=== PATIENT | female | born 1975 | race Hispanic/Latino ===

== ENCOUNTER 2017-03-25 01:18 | Emergency (ER) | payer SELFPAY ==
--- NOTE | 2017-03-25 10:37 | RAD ---
PORTABLE CHEST: HISTORY: Cough and shortness of breath. COMPARISON: 06/13/11 exam. FINDINGS: Heart size and mediastinum within normal limits. The lungs appear of infiltrates. IMPRESSION: No active intrathoracic disease. POS: [facility]
== END 2017-03-25 03:10 | disposition home or self-care (01) ==
LOC: ERS 01:18
DX: J20.9 Acute bronchitis, unspecified (principal); E11.9 Type 2 diabetes mellitus without complications; I10 Essential (primary) hypertension; Z79.4 Long term (current) use of insulin; Z79.899 Other long term (current) drug therapy
CPT/HCPCS: 71010; 87081; 87430; 99406

== ENCOUNTER 2017-10-31 13:03 | Outpatient (CLI) | payer MEDICAID | END 2017-10-31 13:04 | disposition home or self-care (01) | LOC: BICMAMMO 13:03 | PROVIDERS: ATTEND Nurse Practitioner Family | DX: Z12.31 Encounter for screening mammogram for malignant neoplasm of breast (principal); Z80.3 Family history of malignant neoplasm of breast | CPT/HCPCS: 77067 ==

== ENCOUNTER 2018-01-02 09:26 | Emergency (ER) | payer MEDICAID, SELFPAY ==
[2018-01-02] MEDS ORDERED: Labetalol HCl 100 MG/20 ML VIAL ONE (10:09)
--- NOTE | 2018-01-02 10:15 | RAD ---
PORTABLE CHEST 1 VIEW: DATE:01/02/18. TIME: 10:03 a.m. HISTORY: Chest pain, shortness of breath. FINDINGS: The heart size is normal. The lungs are expanded without focal areas of consolidation, pneumothorace s, or pleural effusions. IMPRESSION: No radiographic evidence of acute cardiopulmonary process. POS: [facility]
[2018-01-02 10:41] LABS: #Lymphocytes 1.8 thou/uL (1.20-3.40); #Monocytes 0.5 thou/uL (0.11-0.59); #Neutrophils 7.6 thou/uL (1.40-6.50); %Basophils 0.3 % (0.0-1.0); %Eosinophils 0.5 % (0.0-10.0); %Monocytes 5.3 % (0.0-10.0); Hemoglobin 12.5 g/dL (12.0-16.0); Mean Corpuscular HGB CONC 34.1 g/dL (32.0-36.0); Mean Corpuscular Hemoglobin 30.8 pg (27.0-31.0); Mean Corpuscular Volume 90.1 fL (78.0-98.0); Mean Platelet Volume 7.5 fL (7.4-10.4); Platelet Count 341 thou/uL (130-400); RBC Distribution Width 11.9 % (11.5-14.5); Red Blood Cell (RBC) Count 4.06 mill/uL (4.20-5.40)
--- NOTE | 2018-01-02 10:54 | CT ---
CT BRAIN WITHOUT CONTRAST: HISTORY: Right-sided weakness. COMPARISON: 08/16/2006 FINDINGS: No evidence of acute infarct, hemorrhage, midline shift, or abnormal extraaxial fluid collections is seen. The ventricular size is normal, and the basilar cisterns are patent. The bony calvarium is in tact. The visualized paranasal sinuses and mastoid air cells are well aerated. IMPRESSION: No CT evidence of acute intracranial process. POS: [facility]
[2018-01-02 11:08] LABS: CKMB 3.3 ng/mL (0-6.6); Troponin I Less than 0.010 ng/mL (< 0.028)
[2018-01-02 11:09] LABS: ALT (SGPT) 9 U/L (8-55); AST (SGOT) 11 U/L (5-34); Albumin 4.2 g/dL (3.5-5.0); Alkaline Phosphatase 43 U/L (40-150); Anion Gap 13 mmol/L (10-20); BUN (Urea Nitrogen) 12 mg/dL (7.0-18.7); Bilirubin, Total 0.4 mg/dL (0.2-1.2); CK (CPK) 165 U/L (29-168); Calc. Creatinine Clearance 0 mL/min (70-130); Carbon Dioxide 24 mmol/L (22-29); Chloride 104 mmol/L (98-107); Estimated GFR-MDRD Greater than 90; Globulin 3.1 g/dL (2.4-3.5); Glucose 100 mg/dL (70-105); Potassium 3.4 mmol/L (3.5-5.1); Protein, Total 7.3 g/dL (6.0-8.3); Sodium 138 mmol/L (136-145)
[2018-01-02 13:38] LABS: Troponin I Less than 0.010 ng/mL (< 0.028)
== END 2018-01-02 14:25 | disposition home or self-care (01) ==
LOC: ERS 09:26
DX: R07.89 Other chest pain (principal); R20.2 Paresthesia of skin; E11.9 Type 2 diabetes mellitus without complications; I10 Essential (primary) hypertension; Z79.899 Other long term (current) drug therapy; Z79.4 Long term (current) use of insulin
CPT/HCPCS: 36415; 70450; 71045; 80053; 82553; 83735; 84484; 85025; 93005; 96374

== ENCOUNTER 2018-11-07 06:45 | Emergency (ER) | payer SELFPAY ==
[2018-11-07 07:32] LABS: #Eosinphils 0.3 thou/uL (0.0-0.7); #Lymphocytes 2.1 thou/uL (1.20-3.40); #Monocytes 0.8 thou/uL (0.11-0.59); #Neutrophils 8.1 thou/uL (1.40-6.50); %Basophils 0.3 % (0.0-1.0); %Eosinophils 2.5 % (0.0-10.0); %Lymphocytes 18.6 % (21.0-51.0); %Monocytes 7.3 % (0.0-10.0); %Neutrophils 71.3 % (42.0-75.0); Hemoglobin 12.9 g/dL (12.0-16.0); Mean Corpuscular Hemoglobin 28.9 pg (27.0-31.0); Mean Corpuscular Volume 87.3 fL (78.0-98.0); Mean Platelet Volume 7.3 fL (7.4-10.4); Platelet Count 384 thou/uL (130-400); Red Blood Cell (RBC) Count 4.48 mill/uL (4.20-5.40); White Blood Cell (WBC) Count 11.3 thou/uL (4.8-10.8)
[2018-11-07 07:54] LABS: ALT (SGPT) 10 U/L (8-55); AST (SGOT) 10 U/L (5-34); Albumin 4.4 g/dL (3.5-5.0); Alkaline Phosphatase 74 U/L (40-150); Anion Gap 14 mmol/L (10-20); BUN (Urea Nitrogen) 18 mg/dL (7.0-18.7); Bilirubin, Total 0.6 mg/dL (0.2-1.2); CK (CPK) 92 U/L (29-168); Calc. Creatinine Clearance 0 mL/min (70-130); Calcium 9.9 mg/dL (7.8-10.44); Carbon Dioxide 26 mmol/L (22-29); Chloride 99 mmol/L (98-107); Estimated GFR-MDRD 61; Globulin 3.2 g/dL (2.4-3.5); Glucose 176 mg/dL (70-105); Lipase 24 U/L (8-78); Magnesium 1.5 mg/dL (1.6-2.6); Potassium 3.6 mmol/L (3.5-5.1); Protein, Total 7.6 g/dL (6.0-8.3); Sodium 135 mmol/L (136-145)
== END 2018-11-07 08:30 | disposition home or self-care (01) ==
LOC: ERS 06:45
DX: R11.2 Nausea with vomiting, unspecified (principal); R19.7 Diarrhea, unspecified
CPT/HCPCS: 80053; 82550; 83690; 83735; 85025; 96360

== ENCOUNTER 2019-06-09 22:14 | Emergency (ER) | payer SELFPAY ==
--- NOTE | 2019-06-09 23:15 | RAD ---
XR Chest Pa Lat STANDARD HISTORY: Cough, sneezing, headache COMPARISON: 01/02/2018 FINDINGS: The heart size is normal. The lungs are well expanded without focal areas of consolidation, pneumothorax or pleural effusions. IMPRESSION: No radiographic evidence of acute cardiopulmonary process.
== END 2019-06-09 23:25 | disposition home or self-care (01) ==
LOC: ERS 22:14
DX: J20.9 Acute bronchitis, unspecified (principal); E11.9 Type 2 diabetes mellitus without complications; I10 Essential (primary) hypertension
CPT/HCPCS: 71046

== ENCOUNTER 2019-06-14 20:55 | Emergency (ER) | payer SELFPAY ==
[2019-06-14 21:48] LABS: #Basophils 0.1 thou/uL (0.0-0.2); #Eosinphils 0.2 thou/uL (0.0-0.7); #Lymphocytes 4.4 thou/uL (1.20-3.40); #Monocytes 0.6 thou/uL (0.11-0.59); #Neutrophils 6.4 thou/uL (1.40-6.50); %Eosinophils 1.6 % (0.0-10.0); %Lymphocytes 37.4 % (21.0-51.0); %Monocytes 4.8 % (0.0-10.0); %Neutrophils 55.2 % (42.0-75.0); Hemoglobin 12.3 g/dL (12.0-16.0); Mean Corpuscular HGB CONC 32.9 g/dL (32.0-36.0); Mean Corpuscular Hemoglobin 26.9 pg (27.0-31.0); Mean Corpuscular Volume 81.9 fL (78.0-98.0); Mean Platelet Volume 7.3 fL (7.4-10.4); Platelet Count 560 thou/uL (130-400); RBC Distribution Width 12.5 % (11.5-14.5); Red Blood Cell (RBC) Count 4.56 mill/uL (4.20-5.40); White Blood Cell (WBC) Count 11.7 thou/uL (4.8-10.8)
--- NOTE | 2019-06-14 22:08 | RAD ---
Chest 2 views HISTORY: Cough. COMPARISON: 06/10/2019. FINDINGS: Cardiac silhouette and pulmonary vasculature are unremarkable. Mediastinum is midline. No c onfluent airspace consolidation, pneumothorax, or pleural fluid. IMPRESSION: No active cardiopulmonary abnormalities are demonstrated.
[2019-06-14 22:09] LABS: ALT (SGPT) 16 U/L (8-55); AST (SGOT) 14 U/L (5-34); Albumin 4.6 g/dL (3.5-5.0); Alkaline Phosphatase 75 U/L (40-110); Anion Gap 17 mmol/L (10-20); BUN (Urea Nitrogen) 23 mg/dL (7.0-18.7); Bilirubin, Total 0.3 mg/dL (0.2-1.2); Calc. Creatinine Clearance 0 mL/min (70-130); Calcium 9.5 mg/dL (7.8-10.44); Carbon Dioxide 27 mmol/L (22-29); Chloride 92 mmol/L (98-107); Estimated GFR-MDRD 58; Globulin 3.6 g/dL (2.4-3.5); Glucose 208 mg/dL (70-105); Potassium 3.8 mmol/L (3.5-5.1); Protein, Total 8.2 g/dL (6.0-8.3); Sodium 132 mmol/L (136-145)
== END 2019-06-14 23:15 | disposition home or self-care (01) ==
LOC: ERS 20:55
DX: R55 Syncope and collapse (principal); J20.9 Acute bronchitis, unspecified; E11.9 Type 2 diabetes mellitus without complications; I10 Essential (primary) hypertension; Z79.899 Other long term (current) drug therapy; Z79.4 Long term (current) use of insulin
CPT/HCPCS: 71046; 80053; 83880; 84484; 85025; 87804; 93005; 96360

== ENCOUNTER 2019-10-17 06:30 | Outpatient (CLI) | payer OTHER ==
[2019-10-17 18:08] LABS: Hemoglobin 10.5 g/dL (12.0-16.0); Mean Corpuscular HGB CONC 32.4 g/dL (32.0-36.0); Mean Corpuscular Hemoglobin 25.6 pg (27.0-31.0); Mean Corpuscular Volume 79.1 fL (78.0-98.0); Platelet Count 391 thou/uL (130-400); RBC Distribution Width 13.4 % (11.5-14.5); Red Blood Cell (RBC) Count 4.11 mill/uL (4.20-5.40); White Blood Cell (WBC) Count 8.2 thou/uL (4.8-10.8)
[2019-10-17 18:16] LABS: Anion Gap 15 mmol/L (10-20); BUN (Urea Nitrogen) 12 mg/dL (7.0-18.7); Calc. Creatinine Clearance 0 mL/min (70-130); Calcium 9.3 mg/dL (7.8-10.44); Carbon Dioxide 25 mmol/L (22-29); Chloride 99 mmol/L (98-107); Estimated GFR-MDRD 75; Glucose 287 mg/dL (70-105); Sodium 135 mmol/L (136-145)
[2019-10-17 18:17] LABS: BHCG - Serum Negative (NEGATIVE); Pregs Control Background? CLEAR/WHITE (CLR/WHITE); Pregs Control Bar Appear? YES (CONTROL BAR)
[2019-10-20 12:09] LABS: SARS-CoV-2 MS2 Positive; SARS-CoV-2 N Gene Negative; SARS-CoV-2 S Gene Negative; SARS-CoV-2 orf1ab Negative
== END 2019-10-17 06:31 | disposition home or self-care (01) ==
LOC: LABBT 06:30
PROVIDERS: ATTEND Student in an Organized Health Care Education/Training Program
DX: Z01.812 Encounter for preprocedural laboratory examination (principal); Z11.59 Encounter for screening for other viral diseases; Z83.71 Family history of colonic polyps
CPT/HCPCS: 80048; 84703; 85027; 86850; 86900; 86901; 87635; U0003

== ENCOUNTER 2019-10-21 11:55 | Inpatient (IN) | payer OTHER ==
[2019-10-16 09:32] VITALS: BMI 25.0
[2019-10-21] MEDS ORDERED: Levofloxacin 500 mg/D5W 100 ml Premix Bag ONE (12:40)
[2019-10-21] MEDS ORDERED: Famotidine/PF 20 mg/2ml Vial ONE (12:40)
[2019-10-21] MEDS ORDERED: Gabapentin 300 MG CAP ONE (12:40)
[2019-10-21] MEDS ORDERED: CeleCOXIB 100 MG CAP ONE (12:40)
[2019-10-21] MEDS ORDERED: Clindamycin/D5W 900 mg/50 ml Premix Bag ONE (12:40)
[2019-10-21] MEDS ORDERED: Fentanyl 100 MCG/2 ML VIAL ONE (12:49)
[2019-10-21] MEDS ORDERED: Insulin Regular 300 UNITS/3 ML VIAL ONE (12:55)
[2019-10-21] MEDS ORDERED: Lidocaine 1% w/Epinephrine 1:100K 20 ML VIAL ONE (13:57)
[2019-10-21] MEDS ORDERED: Bupivacaine PF 0.5% 30 ML VIAL ONE (13:57)
[2019-10-21] MEDS ORDERED: Glycopyrrolate 0.2 MG/ML 5 ML SYRINGE ONE (15:04)
[2019-10-21] MEDS ORDERED: PHENYLEPHRINE-NS 100 MCG/ML 10 ML SYRINGE ONE (15:04)
[2019-10-21] MEDS ORDERED: Ondansetron PF 4 MG/2 ML Vial ONE (15:04)
[2019-10-21] MEDS ORDERED: Rocuronium Bromide 10 MG/ML (10ML VIAL) ONE (15:04)
[2019-10-21] MEDS ORDERED: diphenhydrAMINE 50 MG/ML VIAL ONE (15:04)
[2019-10-21] MEDS ORDERED: PROPOFOL 200 MG/20 ML VIAL ONE (15:04)
[2019-10-21] MEDS ORDERED: Lidocaine 1% PF 5 ML VIAL ONE (15:04)
[2019-10-21] MEDS ORDERED: Meperidine HCl/PF 25 MG/ML VIAL SLOW IVP PRN (15:10)
[2019-10-21] MEDS ORDERED: Promethazine HCl 25 MG/ML VIAL SLOW IVP PRN (15:10)
[2019-10-21] MEDS ORDERED: HYDROmorphone 2 MG/ML VIAL SLOW IVP PRN (15:10)
[2019-10-21] MEDS ORDERED: HYDROcodone/Acetaminophen 5/325 mg Tablet PO PRN ×2 (15:12)
[2019-10-21] MEDS ORDERED: Promethazine HCl 25 MG/ML VIAL IM PRN (15:12)
[2019-10-21] MEDS ORDERED: Zolpidem Tartrate 5 MG TAB PO PRN (15:12)
[2019-10-21] MEDS ORDERED: Ondansetron PF 4 MG/2 ML Vial IVP PRN (15:12)
[2019-10-21] MEDS ORDERED: Dextrose 5% in Water 1,000 ML IV PRN (15:12)
[2019-10-21] MEDS ORDERED: Dextrose 50% Abboject 50 ML SYRINGE SLOW IVP PRN (15:12)
[2019-10-21] MEDS ORDERED: Simethicone Chewable 80 MG TAB PO PRN (15:12)
[2019-10-21] MEDS ORDERED: diphenhydrAMINE 25 MG CAP PO PRN (15:12)
[2019-10-21] MEDS ORDERED: Ketorolac Tromethamine 30 MG/ML VIAL IVP SCH (18:00)
--- NOTE | 2019-10-21 20:39 | OP ---
DATE OF PROCEDURE: 10/21/2019 PREOPERATIVE DIAGNOSES: 1. Menorrhagia. 2. Uterine fibroids. 3. Left lower quadrant pain. POSTOPERATIVE DIAGNOSES: 1. Menorrhagia. 2. Uterine fibroids. 3. Left lower quadrant pain. PROCEDURES PERFORMED: Robotic-assisted total laparoscopic hysterectomy, left salpingo-oophorectomy, and right salpingectomy. ANESTHESIA: General endotracheal. GUEST SERVICES ASSOCIATE SURGEON: Basia Shields. ESTIMATED BLOOD LOSS: 20 mL. IV FLUIDS: 1200 mL of crystalloid. URINE OUTPUT: 60 mL, slightly concentrated urine. COMPLICATIONS: None. DRAINS: Mahoney catheter. PATHOLOGY: Uterus, cervix, bilateral fallopian tubes, left ovary. FINDINGS: Normal-appearing 12-week size uterus. Normal-appearing cervix. Normal-appearing bilateral fallopian tubes and ovaries. The ureters were intact in the pelvic sidewall and visible throughout the case. There was excellent hemostasis on low pressure check. DESCRIPTION OF PROCEDURE: The patient was taken to the operating room, where general anesthesia was obtained without difficulty. The patient was prepped and draped in a sterile fashion in the dorsal lithotomy position. Catheter was placed in the bladder. A speculum was placed in the vagina. The anterior lip of the cervix grasped with a single-tooth tenaculum. The cervix was then progressively dilated with Francois dilators. The uterus sounded to 11 cm. The SHAHRAM manipulator was assembled with a 10 cm tip and a 4 cm colpotomizer ring. The SHAHRAM was inserted into the uterus and the speculum and tenaculum were removed out of the vagina. Legs were placed in low lithotomy. Attention was turned to the abdomen. A mixture of 1% lidocaine with epinephrine and 0.5% Marcaine plain were infiltrated into the umbilicus. A 12 mm skin incision was made. The Veress needle was passed into the abdomen noting an opening pressure of 0 mmHg. Pneumoperitoneum was obtained without difficulty. The Veress needle was removed. The 12 mm trocar was advanced into the abdomen and her placement with robotic camera. Steep Trendelenburg was obtained. Right and left lower quadrant 8 mm robotic trocars were placed under direct visualization after infiltrating with anesthetic. A right upper quadrant 11 mm port was also placed under direct visualization after infiltrating with anesthetic. The robot was then docked. The right robotic arm contained monopolar scissors. Left robotic arm contained a fenestrated bipolar. Surgeon console took control. The right fallopian tube was grasped and elevated. The mesosalpinx was clamped from lateral to medial with the fenestrated, cauterized and then incised with the scissors. The medial portion was met and the fallopian tube was clamped across the fenestrated, cauterized and transected with the scissors and removed out of the abdomen. The utero-ovarian was cauterized with the fenestrated and incised and the incision was taken down to the round ligament where the midportion of the round ligament was cauterized with the fenestrated and incised with the scissors. The anterior and posterior leaf of the broad ligament were then incised and the retroperitoneum was dissected off the uterine vessels into the pelvic sidewall. The ureter was visible very posterior and caudad in this case and was well away from the internal cervical os where incisions would be made. Once the vessels were active adequately skeletonized, they were cauterized several times. The vesicouterine peritoneum was then incised and the bladder flap was created with a scoring technique on the pubocervical fascia and blunt dissection with the back end of the scissors distally down below the colpotomizer ring level. Attention was turned to the left side. Since the patient had complained of chronic left lower quadrant pain, she desired her left ovary removed. There were some physiologic adhesions of the sigmoid and rectosigmoid to the pelvic sidewall. The IP ligament was grasped. The ureter was noted running medially across the pelvic brim. The IP was cauterized multiple times with the fenestrated and incised. The round ligament was also cauterized in the midportion and incised and the posterior leaf of the broad ligament was incised down to the level of the uterosacral ligament. The ureter was identified running in the retroperitoneum where it crossed underneath the uterine vessel and this was very lateral from the area of operation. The anterior leaf of the broad ligament was incised and the uterine vessels on the left side were skeletonized and cautery was performed of this vessels. Incision was then made anteriorly on the colpotomy with the scissors. This was carried around laterally. The uterine vessels were incised and hemostasis was noted. The posterior colpotomy was performed and the uterus was then removed out of the body through the vagina and left in the vagina as a means to maintain pneumoperitoneum. The vaginal cuff was irrigated. The scissors were traded out for the needle diesel pile driver operator. Hemostasis was noted. The vaginal cuff was repaired with a 2-0 PDS barbed suture with excellent reapproximation incorporating the vaginal mucosa and posterior peritoneum in each bite. This was then run back for a second layer and the needle was cut and removed out of the abdomen. Irrigation was then performed of all the pedicles and the pelvis and then suctioned. A low-pressure check was performed and excellent hemostasis was noted. All instruments were then removed out of the abdomen. The robot was undocked and pneumoperitoneum was released. The fascia of the umbilical port was closed with a 0 Vicryl in a [id number] fashion. The skin was closed with 4-0 Monocryl in a subcuticular fashion and Dermabond was applied as well as a pressure dressing. The patient tolerated the procedure well. Sponge, lap, and needle counts correct x2. The patient was taken to recovery room in stable condition. The patient received clindamycin 900 mg and Levaquin 500 mg prior to the procedure. Job ID: [id number]
[2019-10-21] MEDS: Docusate 100 MG CAP PO SCH (23:05)
[2019-10-21] MEDS: metFORMIN 500 MG TAB PO SCH (23:05)
[2019-10-21] MEDS: glipiZIDE 10 MG TAB PO SCH (23:05)
[2019-10-21] MEDS: HumaLOG 300 UNITS/3 ML VIAL SC PRN (23:17)
[2019-10-21] MEDS: Sodium Chloride 0.9% 1,000 ML IV SCH (23:19)
[2019-10-22 05:43] LABS: Hemoglobin 10.7 g/dL (12.0-16.0); Mean Corpuscular HGB CONC 32.8 g/dL (32.0-36.0); Mean Corpuscular Hemoglobin 25.8 pg (27.0-31.0); Mean Corpuscular Volume 78.5 fL (78.0-98.0); Mean Platelet Volume 8.2 fL (7.4-10.4); Platelet Count 360 thou/uL (130-400); RBC Distribution Width 13.6 % (11.5-14.5); Red Blood Cell (RBC) Count 4.15 mill/uL (4.20-5.40); White Blood Cell (WBC) Count 16.9 thou/uL (4.8-10.8)
[2019-10-22] MEDS ORDERED: Ibuprofen 800 MG TAB PO SCH (06:00)
[2019-10-22] MEDS: HumaLOG 300 UNITS/3 ML VIAL SC PRN ×2 (08:30→11:28)
[2019-10-22] MEDS ORDERED: Alogliptin 25 MG TAB PO SCH (09:00)
[2019-10-22] MEDS ORDERED: Insulin Glargine 45 UNITS in Pre-Filled Syringe 1 EACH SC SCH (09:00)
[2019-10-22] MEDS ORDERED: Lisinopril/Hydrochlorothiazide 10 mg/12.5 mg Tablet PO SCH (09:00)
[2019-10-22] MEDS ORDERED: INSULIN DETEMIR 45 UNIT SC SCH (09:00)
[2019-10-22] MEDS: Sodium Chloride 0.9% 1,000 ML IV SCH (09:15)
[2019-10-22] MEDS: Docusate 100 MG CAP PO SCH (09:40)
[2019-10-22] MEDS: metFORMIN 500 MG TAB PO SCH (09:40)
[2019-10-22] MEDS ORDERED: Lisinopril 10 MG TAB PO SCH (09:45)
[2019-10-22] MEDS ORDERED: Hydrochlorothiazide 25 MG TAB PO SCH (09:45)
--- NOTE | 2019-10-22 09:47 | PDOC.EVN ---
Event Note - Event Note Event Note: POD1 S: Having gas pain that is manageable, roland reg diet, DTV. O: VSSAF NAD unlabored respirations abd soft/appttp/ND/inc c/d/i No edema Hgb 10.7 FSBS 210 A) POD1 s/p RATLH LSO P) Doing well, needs to void otherwise met milestones BS elevated due to perioperative insulin mgmt and surgery getting pushed back 24hr, cont home meds Hgb increased from preop, has iron deficiency anemia due to chronic blood loss. Will start Iron after recovery Path pending DC home FU 2 weeks
[2019-10-22] MEDS: glipiZIDE 10 MG TAB PO SCH (10:27)
[2019-10-22 14:23] VITALS: BP 143/70; TEMP 98.7
[2019-10-23] MEDS ORDERED: Lisinopril 10 MG TAB PO SCH (09:00)
[2019-10-23] MEDS ORDERED: Hydrochlorothiazide 25 MG TAB PO SCH (09:00)
== END 2019-10-22 14:20 | disposition home or self-care (01) | DRG 743 ==
LOC: SDC 11:55 → 3SW 15:11
PROVIDERS: ADMIT Student in an Organized Health Care Education/Training Program; ATTEND Student in an Organized Health Care Education/Training Program
PROC: 0UT94ZZ Resection of Uterus, Percutaneous Endoscopic Approach (ICD-10-PCS; principal; 2019-10-21)
PROC: 0UT74ZZ Resection of Bilateral Fallopian Tubes, Percutaneous Endoscopic Approach (ICD-10-PCS; 2019-10-21)
PROC: 0UT14ZZ Resection of Left Ovary, Percutaneous Endoscopic Approach (ICD-10-PCS; 2019-10-21)
PROC: 8E0W4CZ Robotic Assisted Procedure of Trunk Region, Percutaneous Endoscopic Approach (ICD-10-PCS; 2019-10-21)
DX: D25.2 Subserosal leiomyoma of uterus (principal); N92.0 Excessive and frequent menstruation with regular cycle; D50.0 Iron deficiency anemia secondary to blood loss (chronic)
CPT/HCPCS: 36415; 36416; 85027; 88307; J1200; J1815; J1885; J1956; J2001; J2405; J2704; J3010; J3490; S0020; S0028

== ENCOUNTER 2020-01-29 09:45 | Observation (INO) | payer OTHER, SELFPAY ==
[2020-01-29 10:55] LABS: #Basophils 0.1 thou/uL (0.0-0.2); #Lymphocytes 1.9 thou/uL (1.20-3.40); #Monocytes 0.6 thou/uL (0.11-0.59); #Neutrophils 2.8 thou/uL (1.40-6.50); %Basophils 1.4 % (0.0-1.0); %Eosinophils 0.7 % (0.0-10.0); %Lymphocytes 35.3 % (21.0-51.0); %Monocytes 11.1 % (0.0-10.0); %Neutrophils 51.5 % (42.0-75.0); Hemoglobin 13.6 g/dL (12.0-16.0); Mean Corpuscular HGB CONC 33.2 g/dL (32.0-36.0); Mean Corpuscular Hemoglobin 27.1 pg (27.0-31.0); Mean Corpuscular Volume 81.8 fL (78.0-98.0); Mean Platelet Volume 8.9 fL (7.4-10.4); Platelet Count 351 thou/uL (130-400); RBC Distribution Width 16.4 % (11.5-14.5); Red Blood Cell (RBC) Count 5.01 mill/uL (4.20-5.40); White Blood Cell (WBC) Count 5.4 thou/uL (4.8-10.8)
[2020-01-29 11:19] LABS: ALT (SGPT) 25 U/L (8-55); AST (SGOT) 23 U/L (5-34); Albumin 4.1 g/dL (3.5-5.0); Alkaline Phosphatase 73 U/L (40-110); Anion Gap 15 mmol/L (10-20); BUN (Urea Nitrogen) 12 mg/dL (7.0-18.7); Bilirubin, Total 0.2 mg/dL (0.2-1.2); Calc. Creatinine Clearance 0 mL/min (70-130); Calcium 8.7 mg/dL (7.8-10.44); Carbon Dioxide 25 mmol/L (22-29); Chloride 98 mmol/L (98-107); Estimated GFR-MDRD 66; Globulin 3.5 g/dL (2.4-3.5); Glucose 321 mg/dL (70-105); Potassium 3.8 mmol/L (3.5-5.1); Protein, Total 7.6 g/dL (6.0-8.3); Sodium 134 mmol/L (136-145)
--- NOTE | 2020-01-29 11:25 | CT ---
CT HEAD WITHOUT CONTRAST: Date: 01/29/2020 INDICATION: Right side weakness. COMPARISON: 01/02/2018. FINDINGS: Ventricles have normal size and position. There is no evidence of intracranial mass or hemorrhage. No edema or infarct seen. Paranasal sinuses are clear. IMPRESSION: No acute abnormality. POS: [facility]
[2020-01-29] MEDS ORDERED: Aspirin Chewable 81 MG TAB ONE (13:07)
--- NOTE | 2020-01-29 13:33 | PDOC.HHP ---
Hospitalist HPI - History of Present Illness Right arm paresthesia History of Present Illness: PCP: Rachel Lorenzo The patient is a 44-year-old female with a past medical history significant for DM 2 (on Levemir) and hypertension that presents to the emergency department for the above complaint. Patient reports at approximately 3:00, yesterday afternoon, developing right upper extremity paresthesias. She says it is like when you fall asleep on your arm. She denies any recent trauma, focal motor wea kness, headache, change in speech or vision. She also reports that her daughter tested positive for COVID 2 days ago. She reports associated mild sore throat, body aches, cough and chills. She denies feeling shortness of breath or wheezing. Has no history of COPD/asthma. She denies any loss of smell, abdominal pain, vomiting or diarrhea. She has no urinary symptoms. ED Course: VITAL SIGNS [facility] Jan 29, 2020 09:57 JEFFERY Guevara Rebecca Pulse: 124, Resp: 14, Temp: 98.4 (Oral), Pain: 5, O2 sat: 98, Time: 01/29/2020 09:57. VITAL SIGNS [facility] Jan 29, 2020 10:02 JEFFERY Guevara Rebecca BP: 163/105, Pulse: 116, Time: 01/29/2020 10:02. VITAL SIGNS [facility] Jan 29, 2020 12:02 JEFFERY Guevara Rebecca BP: 129/86, Pulse: 103, Resp: 16, Pain: 5, O2 sat: 98 on (Room Air), Time: 01/29/2020 12:02. VITAL SIGNS [facility] Jan 29, 2020 11:00 JEFFERY Guevara Rebecca BP: 140/83, Pulse: 109, Resp: 16, Pain: 5, O2 sat: 99 on (Room Air), Time: 01/29/2020 11:00. Medication administration: aspirin oral 324 mg Oral Given 13:11 01/29/2020 Hospitalist ROS - Review of Systems All other systems reviewed; all pertinent +/- noted in HPI/Subj - Medication Medications: Levemir U-100 Insulin solution : Strength - 100 unit/mL : SUBCUTANEOUS Patient Dose: Unknown.25 IN AM, 20 PM. metFORMIN tablet extended release 24hr : Strength - 1,000 mg : ORAL Patient Dose: 1 tab(s) 2 times a day. glipiZIDE tablet : Strength - 10 mg : ORAL Patient Dose: 2 times a day. Januvia tablet : Strength - 25 mg : ORAL Patient Dose: Unknown dosing. lisinopril-hydrochlorothiazide tablet : Strength - 10 mg-12.5 mg : ORAL Patient Dose: 1 tab(s) once a day (in the morning). Allergies: atorvastatin (Unconfirmed), Latex, Natural Rubber, latex (Unconfirmed), Lipitor, Penicillins Hospitalist History - Past Medical History Source: patient, RN notes reviewed Cardiac: reports: HTN Endocrine: reports: Diabetes (Type II, on insulin) - Past Surgical History Past Surgical History: reports: Tubal Ligation, Other (Uterine tumor 07/10) - Family History Family History: denies: cerebrovascular accident - Social History Smoking Status: Never smoker Alcohol: reports: Rare Drugs: reports: none Living Situation: With Family Occupation: Works for [employer] Activity level: independent ambulation - Exam General Appearance: NAD, awake alert Eye: PERRL, anicteric sclera ENT: normocephalic atraumatic Neck: supple, symmetric, no JVD Heart: RRR, no murmur, no gallops, no rubs, normal peripheral pulses Respiratory: CTAB, no wheezes, no rales, no ronchi, normal chest expansion, no tachypnea Gastrointestinal: soft, non-tender, normal bowel sounds, no guarding, no rigidity Extremities: no cyanosis, no edema Skin: no rashes Neurological: cranial nerve grossly intact, no weakness. negative: facial droop, speech deficit, vision deficit Neurological - other findings: Right upper extremity decreased sensation Musculoskeletal: normal tone, normal strength Psychiatric: normal affect, A&O x 3 Hospitalist Results - Labs Result Diagrams: 01/29/20 10:01/29/20 10:01 Lab results: WBC 5.4 thou/uL (4.8-10.8) 01/29/20 10:01 Hgb 13.6 g/dL (12.0-16.0) 01/29/20 10:01 Hct 41.0 % (36.0-47.0) 01/29/20 10:01 MCV 81.8 fL (78.0-98.0) 01/29/20 10:01 Plt Count 351 thou/uL (130-400) 01/29/20 10:01 Neutrophils % 51.5 % (42.0-75.0) 01/29/20 10:01 Sodium 134 mmol/L (136-145) L 01/29/20 10:01 Potassium 3.8 mmol/L (3.5-5.1) 01/29/20 10:01 Chloride 98 mmol/L (98-107) 01/29/20 10:01 Carbon Dioxide 25 mmol/L (22-29) 01/29/20 10:01 BUN 12 mg/dL (7.0-18.7) 01/29/20 10:01 Creatinine 0.92 mg/dL (0.6-1.1) 01/29/20 10:01 Glucose 321 mg/dL (70-105) H 01/29/20 10:01 Calcium 8.7 mg/dL (7.8-10.44) 01/29/20 10:01 Total Bilirubin 0.2 mg/dL (0.2-1.2) 01/29/20 10:01 AST 23 U/L (5-34) 01/29/20 10:01 ALT 25 U/L (8-55) 01/29/20 10:01 Alkaline Phosphatase 73 U/L (40-110) 01/29/20 10:01 Troponin I Less than 0.010 ng/mL (< 0.028) 01/29/20 10:01 Serum Total Protein 7.6 g/dL (6.0-8.3) 01/29/20 10:01 Albumin 4.1 g/dL (3.5-5.0) 01/29/20 10:01 - EKG Interpretation EK lead EKG interpreted by Emergency Department Physician at time of study, Sinus tachycardia heart rate 114 bpm normal axis no ectopy no ST elevation or depression overall impression is nonspecific. - Radiology Interpretation CT scan - head Status: report reviewed by me Additional Comment: no acute intracranial process. Hospitalist H&P A/P - Problem (1) Paresthesia of right upper extremity Code(s): R20.2 - PARESTHESIA OF SKIN Status: Acute (2) Exposure to COVID-19 virus Code(s): Z20.828 - CONTACT W AND EXPOSURE TO OTH VIRAL COMMUNICABLE DISEASES Status: Acute (3) Diabetes type 2, uncontrolled Code(s): E11.65 - TYPE 2 DIABETES MELLITUS WITH HYPERGLYCEMIA Status: Chronic (4) Hypertension Code(s): I10 - ESSENTIAL (PRIMARY) HYPERTENSION Status: Chronic - Plan Plan: 44/F with PMH of HTN, DM 2, and COVID exposure presents to emergency department for right upper extremity paresthesias. Admit to stroke unit, observation status. Expected length of stay less than 2 midnights. Presented elevated BP and HR, NL RR, SPO2, afebrile. NIH 1, RUE sensation CT brain negative for acute process EKG sinus tach, 114 Troponin negative WBC 5.4, BG 321 #Paresthesias of right upper extremity Obtain MRI, echo, CD US Consult neurology and PT Continue aspirin Documented allergy to statin, no statins Check TSH, FLP, UA, mag, folate/B12. Neuro checks. Permissive hypertension #Exposure COVID 19 virus Daughter tested +2 days ago. Rapid COVID swab pending. Isolation precautions. Will get CXR. #DM2 Takes Levemir 25 units a.m./20 units p.m. Takes metformin, glipizide, unknown dose Januvia at home. We will hold oral anti-hyperglycemics for now. We will start Levemir home dose. We will give 10 units regular insulin SC x1. Moderate ISS. AC/at bedtime checks. Hypertension Presented hypertensive. Takes lisinopril/HCTZ at home. Did not take home dose this morning. We will give home dose x1 now and restart home medication. Continue to monitor BP. SCDs for DVT prophylaxis. No GI prophylaxis. Full code. Discussed the case with Dr. Herrera.
[2020-01-29] MEDS ORDERED: hydrALAZINE 20 MG/ML VIAL SLOW IVP PRN (14:12)
[2020-01-29] MEDS ORDERED: Labetalol HCl 100 MG/20 ML VIAL SLOW IVP PRN (14:12)
[2020-01-29] MEDS ORDERED: Ondansetron ODT 4 MG TAB PO PRN (14:16)
[2020-01-29] MEDS ORDERED: Ondansetron PF 4 MG/2 ML Vial IVP PRN (14:16)
[2020-01-29] MEDS ORDERED: Acetaminophen 325 MG TAB PO PRN (14:16)
[2020-01-29] MEDS ORDERED: Dextrose 5% in Water 1,000 ML IV PRN (14:32)
[2020-01-29] MEDS ORDERED: HumaLOG 300 UNITS/3 ML VIAL SC PRN ×2 (14:32)
[2020-01-29] MEDS ORDERED: Dextrose 50% Abboject 50 ML SYRINGE SLOW IVP PRN (14:32)
[2020-01-29] MEDS ORDERED: Insulin Regular 300 UNITS/3 ML VIAL SC SCH (14:45)
--- NOTE | 2020-01-29 14:55 | RAD ---
PORTABLE CHEST: 01/29/20 HISTORY: Cough and chills. COVID exposure. Lungs appear clear. No infiltrate identified. Heart and mediastinum unremarkable. IMPRESSION: No evidence of infiltrate. POS: [facility]
[2020-01-29] MEDS ORDERED: Lisinopril/Hydrochlorothiazide 10 mg/12.5 mg Tablet PO SCH (15:00)
[2020-01-29] MEDS ORDERED: Magnesium 2 GM/50 ML 2 GM in Premix Bag 1 BAG IVPB SCH (15:30)
--- NOTE | 2020-01-29 16:10 | MRI ---
MRI OF THE BRAIN WITHOUT CONTRAST: 01/29/20 HISTORY: Right sided weakness. FINDINGS: Correlation is made with the CT scan obtained earlier today. No restricted diffusion is seen. No signal abnormalities are seen on the highly sensitive FLAIR image s. The ventricular size is normal and the basilar cisterns patent. No evidence of infarct, hemorrhage, midline shift or abnormal extra-axial fluid collections are seen. No tonsillar herniation is noted. There is mild mucosal disease in the paranasal sinuses. IMPRESSION: No evidence of acute intracranial process. POS: [facility]
[2020-01-29 17:05] LABS: Bilirubin Negative (Negative); Blood, Urine Negative (Negative); Clarity Clear (Clear); Glucose, Urine (Dipstick) Greater than 1000 mg/dL (Negative); Ketone, Urine Negative (Negative); Leukocyte 500 Leu/uL (Negative); Nitrite Negative (Negative); Protein, Urine (Dipstick) Negative (Neg-Trace); RBC/HPF 0-3 HPF (0-3); Specific Gravity, Urine 1.022 (1.002-1.036); Urobilinogen Normal mg/dL (Less than 2)
[2020-01-29 17:06] LABS: Bacteria/HPF 1+ HPF (None Seen)
[2020-01-29 17:30] LABS: SARS-CoV-2 MS2 Negative; SARS-CoV-2 N Gene Positive; SARS-CoV-2 S Gene Positive; SARS-CoV-2 by NAA DETECTED (NotDetected); SARS-CoV-2 orf1ab Positive
[2020-01-29] MEDS ORDERED: Insulin Glargine 20 UNITS in Pre-Filled Syringe SC SCH (21:00)
[2020-01-30 02:03] VITALS: BMI 25.6
[2020-01-30 05:17] LABS: #Basophils 0.1 thou/uL (0.0-0.2); #Lymphocytes 1.9 thou/uL (1.20-3.40); #Monocytes 0.4 thou/uL (0.11-0.59); #Neutrophils 2.1 thou/uL (1.40-6.50); %Basophils 1.6 % (0.0-1.0); %Eosinophils 0.7 % (0.0-10.0); %Lymphocytes 42.2 % (21.0-51.0); %Monocytes 8.3 % (0.0-10.0); %Neutrophils 47.2 % (42.0-75.0); Hemoglobin 13.2 g/dL (12.0-16.0); Mean Corpuscular HGB CONC 33.5 g/dL (32.0-36.0); Mean Corpuscular Hemoglobin 27.4 pg (27.0-31.0); Mean Corpuscular Volume 81.8 fL (78.0-98.0); Mean Platelet Volume 7.9 fL (7.4-10.4); Platelet Count 313 thou/uL (130-400); RBC Distribution Width 16.1 % (11.5-14.5); White Blood Cell (WBC) Count 4.5 thou/uL (4.8-10.8)
[2020-01-30 05:34] LABS: Anion Gap 9 mmol/L (10-20); BUN (Urea Nitrogen) 14 mg/dL (7.0-18.7); Calc. Creatinine Clearance 102 mL/min (70-130); Calcium 8.4 mg/dL (7.8-10.44); Carbon Dioxide 27 mmol/L (22-29); Cardiac Risk 5.9 (Less than 4.5); Chloride 100 mmol/L (98-107); Cholesterol 129 mg/dl (< 200 Desired); Estimated GFR-MDRD 80; Glucose 310 mg/dL (70-105); HDL Cholesterol 22 mg/dL (>60 Neg Risk); LDL Cholesterol, Calculated 69 mg/dL; Potassium 3.8 mmol/L (3.5-5.1); Sodium 132 mmol/L (136-145); Triglycerides 190 mg/dL (Less than 150)
[2020-01-30 05:56] LABS: Ferritin 12.25 ng/mL (10-291)
--- NOTE | 2020-01-30 08:37 | ULT ---
BILATERALL CAROTID DUPLEX ULTRASOUND: HISTORY: Right-sided weakness. FINDINGS: Real-time color Doppler evaluation of the right and left carotid systems was performed. This shows s ome intimal thickening and minimal plaque formation bilaterally. On the right side, peak systolic velocities of the common carotid were 87 cm/s. Internal carotid batsheva ocities 95 cm/s. External carotid velocities are 103 cm/s. On the left side, peak systolic velocities of the common carotid were 89 cm/s. Internal carotid velo cities are 82 cm/s. External carotid velocities are 88 cm/s. Vertebral flow is antegrade bilaterally. IMPRESSION: No evidence of hemodynamically significant stenosis of either internal carotid artery by NASCET crite russel. POS: [facility]
[2020-01-30] MEDS ORDERED: Lisinopril/Hydrochlorothiazide 10 mg/12.5 mg Tablet PO SCH (09:00)
[2020-01-30] MEDS ORDERED: Zinc Sulfate 220 MG CAP PO SCH (09:00)
[2020-01-30] MEDS ORDERED: Insulin Glargine 25 UNITS in Pre-Filled Syringe SC SCH (09:00)
[2020-01-30] MEDS ORDERED: Ascorbic Acid 500 mg Chewable Tablet PO SCH (09:00)
[2020-01-30] MEDS ORDERED: Aspirin 81 mg Enteric Coated Tablet PO SCH (09:00)
[2020-01-30] MEDS ORDERED: Cholecalciferol 1,000 UNITS (25 MCG) TAB PO SCH (09:00)
[2020-01-30] MEDS ORDERED: FLU VACC QS2020-21(6MOS UP)/PF 60 MCG/0.5 ML SYRINGE IM ONE (09:00)
[2020-01-30] MEDS ORDERED: Dexamethasone 10 MG in Sodium Chloride 0.9% 50 ML IVPB SCH (09:30)
[2020-01-30] MEDS ORDERED: Dexamethasone 4 mg/ml Vial SLOW IVP SCH (11:00)
[2020-01-30 11:51] VITALS: BP 134/81; TEMP 97.9
[2020-01-30 13:58] LABS: INR-International Normal Ratio 0.9; PTT 26.5 sec (22.9-36.1); Prothrombin Time 12.2 sec (12.0-14.7)
[2020-01-30 13:59] LABS: D-Dimer Test 0.51 *mcg/mL (0.27-0.43)
[2020-01-30 16:55] LABS: Cardiolipin IgA Ab 3.4 APL-U/mL (<14 Negative); Cardiolipin IgM Ab Less than 0.8 MPL-U/mL (<10 Negative); EliA APS New Method **** NEW METHOD ****
--- NOTE | 2020-01-31 00:45 | DIS ---
DATE OF ADMISSION: 01/29/2020 DATE OF DISCHARGE: 01/30/2020 PRIMARY CARE PROVIDER: Rachel Lorenzo. DISCHARGE DIAGNOSES: 1. Transient ischemic attack. 2. Dyslipidemia. 3. Hyponatremia. 4. COVID-19 test positive. CONDITION OF PATIENT ON THE DAY OF DISCHARGE: Stable. I assessed Ms. Bonilla on the day of discharge. She denies any chest pain or shortness of breath. She denies any urinary symptoms. Vital signs are stable. S1 and S2 are heard, regular. Lungs are clear to auscultation bilaterally. DISCHARGE MEDICATIONS: She has been started on aspirin 81 mg daily. She was recommended a statin, but she reported that she is allergic to statins. She has been advised to discuss with her primary care provider regarding the same. CONSULTATIONS DURING THIS HOSPITALIZATION: Neurology, Dr. Basurto. HOSPITAL COURSE: Ms. Bonilla is a pleasant 44-year-old lady with a history of recent exposure to COVID virus, who was admitted to [facility] on January 29, 2020, for right arm paresthesias. She was seen by Neurology Service. MRI of the brain did not show evidence of acute intracranial process. She also had carotid Dopplers, which did not show any evidence of hemodynamically significant stenosis of either internal carotid arteries. Her symptoms resolved. Her COVID-19 test came back positive. She has been advised to get an oximeter and to seek medical help if oxygen saturations drop below 90%. Many thanks for allowing me to participate in your patient's care. Please feel free to contact me with any questions or concerns. POST ACUTE CARE FOLLOWUP: With primary care provider in 3 days. ACTIVITY: As tolerated. DIET: Diabetic and heart healthy. DISCHARGE DESTINATION: Home. Job ID: [id number]
[2020-01-31] MEDS ORDERED: Dexamethasone 4 mg/ml Vial SLOW IVP SCH (09:00)
[2020-01-31] MEDS ORDERED: Dexamethasone 6 MG in Sodium Chloride 0.9% 50 ML IVPB SCH (09:00)
[2020-02-04 13:50] LABS: Factor VIII Test 211.9 % ACTIVE (56-157); Protein C Activity 156 % (78-152)
[2020-02-05 07:34] LABS: HEX PHOS LA Tube 1 36.7 SEC; HEX PHOS LA Tube 2 36.8 SEC
[2020-02-06 19:12] LABS: Activated Protein C Resistance 2.6 ratio (.)
== END 2020-01-30 16:35 | disposition home or self-care (01) ==
LOC: ERS 09:45 → 2SW 19:12
PROVIDERS: ADMIT Internal Medicine; ATTEND Internal Medicine
DX: U07.1 COVID-19 (principal); G45.9 Transient cerebral ischemic attack, unspecified; E78.5 Hyperlipidemia, unspecified; E87.1 Hypo-osmolality and hyponatremia; E11.65 Type 2 diabetes mellitus with hyperglycemia; I10 Essential (primary) hypertension; Z79.4 Long term (current) use of insulin; Z79.899 Other long term (current) drug therapy; Z88.0 Allergy status to penicillin; Z88.8 Allergy status to other drugs, medicaments and biological substances; Z91.040 Latex allergy status
CPT/HCPCS: 36415; 36416; 70450; 70551; 71045; 80048; 80053; 80061; 81001; 81240; 81241; 82607; 82728; 82746; 83090; 83735; 84443; 84484; 85025; 85240; 85300; 85303; 85305; 85307; 85379; 85598; 85610; 85730; 86140; 86147; 87635; 93005; 93880; 96374; G0378; J1100; J1815; U0003

== ENCOUNTER 2020-10-15 19:09 | Emergency (ER) | payer SELFPAY ==
[2020-10-15 19:42] LABS: #Basophils 0.1 thou/uL (0.0-0.2); #Eosinphils 0.1 thou/uL (0.0-0.7); #Lymphocytes 2.7 thou/uL (1.20-3.40); #Monocytes 0.3 thou/uL (0.11-0.59); #Neutrophils 3.2 thou/uL (1.40-6.50); %Eosinophils 2.3 % (0.0-10.0); %Lymphocytes 41.6 % (21.0-51.0); %Neutrophils 50.2 % (42.0-75.0); Hemoglobin 14.5 g/dL (12.0-16.0); Mean Corpuscular HGB CONC 35.7 g/dL (32.0-36.0); Mean Corpuscular Volume 89.7 fL (78.0-98.0); Mean Platelet Volume 7.9 fL (7.4-10.4); Platelet Count 290 thou/uL (130-400); RBC Distribution Width 10.8 % (11.5-14.5); Red Blood Cell (RBC) Count 4.52 mill/uL (4.20-5.40); White Blood Cell (WBC) Count 6.4 thou/uL (4.8-10.8)
[2020-10-15] MEDS ORDERED: Ketorolac Tromethamine 30 MG/ML VIAL ONE (19:55)
[2020-10-15] MEDS ORDERED: diphenhydrAMINE 50 MG/ML VIAL ONE (19:55)
[2020-10-15] MEDS ORDERED: Metoclopramide HCl 10 MG/2 ML VIAL ONE (19:55)
[2020-10-15 20:02] LABS: ALT (SGPT) 14 U/L (8-55); AST (SGOT) 11 U/L (5-34); Albumin 4.2 g/dL (3.5-5.0); Alkaline Phosphatase 90 U/L (40-110); Anion Gap 16 mmol/L (10-20); BUN (Urea Nitrogen) 14 mg/dL (7.0-18.7); Bilirubin, Total 0.3 mg/dL (0.2-1.2); Calc. Creatinine Clearance 0 mL/min (70-130); Calcium 9.5 mg/dL (7.8-10.44); Carbon Dioxide 27 mmol/L (22-29); Chloride 94 mmol/L (98-107); Globulin 3.2 g/dL (2.4-3.5); Phosphorus 3.7 mg/dL (2.3-4.7); Protein, Total 7.4 g/dL (6.0-8.3); Sodium 133 mmol/L (136-145)
[2020-10-15 20:03] LABS: Actual Bicarbonate (HCO3v) 26 mEq/L (22-28); Analyzer IN Cardio ER; Base Excess 0.3 mEq/L (-2.0 to +3.0); Calcium, Ionized (venous) 1.13 mmol/L (1.16-1.32); Chloride (VBG) 95 mmol/L (98-106); Hemoglobin (Hb) 14.7 g/dL (11.7-16.0); Potassium (VBG) 4.05 mmol/L (3.70-5.30); Sodium 134.9 mmol/L (133-146); pH (venous) 7.38 (7.32-7.43)
[2020-10-15 20:12] LABS: Glucose 634 mg/dL (70-105)
[2020-10-15] MEDS ORDERED: Insulin Regular 300 UNITS/3 ML VIAL ONE (20:30)
== END 2020-10-15 22:12 | disposition home or self-care (01) ==
LOC: ERS 19:09
DX: E11.65 Type 2 diabetes mellitus with hyperglycemia (principal); I10 Essential (primary) hypertension; Z79.4 Long term (current) use of insulin
CPT/HCPCS: 36416; 70450; 80053; 82010; 82805; 83735; 83930; 84100; 85025; 96365; 96375; J1200; J1815; J1885; J2765

== ENCOUNTER 2021-05-31 13:46 | Emergency (ER) | payer MEDICAID ==
[2021-05-31] MEDS ORDERED: Albuterol 200 PUFF (6.7GM INHALER) ONE (14:18)
== END 2021-05-31 14:42 | disposition home or self-care (01) ==
LOC: ERS 13:46
DX: U07.1 COVID-19 (principal); E11.9 Type 2 diabetes mellitus without complications; I10 Essential (primary) hypertension; Z79.4 Long term (current) use of insulin; Z79.84 Long term (current) use of oral hypoglycemic drugs
CPT/HCPCS: 71045

== ENCOUNTER 2023-04-03 11:14 | Observation (INO) | payer BC ==
[2023-04-03] MEDS ORDERED: Iopamidol-370 76% 500 ML MDV (1 ML CHARGE) ONE (11:20)
[2023-04-03 11:40] LABS: #Basophils 0.1 thou/uL (0.0-0.2); #Eosinphils 0.1 thou/uL (0.0-0.7); #Monocytes 0.4 thou/uL (0.11-0.59); #Neutrophils 6.5 thou/uL (1.40-6.50); %Basophils 0.5 % (0.0-1.0); %Lymphocytes 23.8 % (21.0-51.0); %Monocytes 4.4 % (0.0-10.0); %Neutrophils 70.1 % (42.0-75.0); Hematocrit 44.6 % (36.0-47.0); Hemoglobin 15.4 g/dL (12.0-16.0); Mean Corpuscular HGB CONC 34.5 g/dL (32.0-36.0); Mean Corpuscular Hemoglobin 30.7 pg (27.0-31.0); Mean Corpuscular Volume 88.8 fl (78.0-98.0); Mean Platelet Volume 9.5 fL (7.4-10.4); Platelet Count 431 10x3/uL (130-400); RBC Distribution Width 12.2 % (11.5-14.5); Red Blood Cell (RBC) Count 5.02 mill/uL (4.20-5.40); White Blood Cell (WBC) Count 9.3 10x3/uL (4.8-10.8)
[2023-04-03 11:54] LABS: ALT (SGPT) 13 U/L (8-55); AST (SGOT) 13 U/L (5-34); Albumin 4.4 g/dL (3.5-5.0); Alkaline Phosphatase 60 U/L (40-110); Anion Gap 16 mmol/L (10-20); BUN (Urea Nitrogen) 13 mg/dL (7.0-18.7); Bilirubin, Total 0.3 mg/dL (0.2-1.2); Calc. Creatinine Clearance 0 mL/min (70-130); Calcium 9.5 mg/dL (7.8-10.44); Carbon Dioxide 20 mmol/L (22-29); Chloride 103 mmol/L (98-107); Estimated GFR 101; Globulin 3.3 g/dL (2.4-3.5); Glucose 111 mg/dL (70-105); Potassium 3.8 mmol/L (3.5-5.1); Protein, Total 7.7 g/dL (6.0-8.3); Sodium 135 mmol/L (136-145)
[2023-04-03 11:58] LABS: BHCG - Serum Negative (NEGATIVE); Pregs Control Background? CLEAR/WHITE (CLR/WHITE); Pregs Control Bar Appear? YES (CONTROL BAR); Troponin I 0.019 ng/mL (< 0.028)
[2023-04-03 12:00] LABS: INR-International Normal Ratio 0.8; PTT 28.1 sec (22.9-36.1); Prothrombin Time 11.7 sec (12.0-14.7)
[2023-04-03] MEDS ORDERED: Acetaminophen 500 MG TAB ONE (12:11)
[2023-04-03] MEDS ORDERED: Metoclopramide HCl 10 MG/2 ML VIAL ONE (12:11)
[2023-04-03 12:19] LABS: Bacteria/HPF None Seen HPF (None Seen); Bilirubin Negative (Negative); Blood, Urine Negative (Negative); CAUTI Indications for Culture Alt mental st,lethar; Clarity Clear (Clear); Glucose, Urine (Dipstick) Greater than 1000 mg/dL (Negative); Ketone, Urine Negative (Negative); Leukocyte 75 Leu/uL (Negative); Nitrite Negative (Negative); Protein, Urine (Dipstick) Negative (Neg-Trace); RBC/HPF 0-3 HPF (0-3); Specific Gravity, Urine 1.044 (1.002-1.036); Squamous Epithelial 0-3 HPF (0-3); Urobilinogen Normal mg/dL (Less than 2); WBC/HPF 0-3 HPF (0-3)
[2023-04-03 12:23] LABS: Urine Culture Reflex No No
[2023-04-03 12:27] LABS: Amphetamine Not Detected (NotDetected); Barbiturates Screen Not Detected (NotDetected); Benzodiazepine Screen Not Detected (NotDetected); Cocaine Metabolite Screen Not Detected (NotDetected); Methadone Not Detected (NotDetected); Methamphetamine Not Detected (NotDetected); Opiate Screen Not Detected (NotDetected); Oxycodone Screen Not Detected (NotDetected); Phencyclidine (PCP) Not Detected (NotDetected); THC/Cannabinoid Screen Not Detected (NotDetected); Tricyclic Screen Not Detected (NotDetected)
[2023-04-03] MEDS ORDERED: Aspirin 325 MG TAB ONE (13:16)
[2023-04-03] MEDS ORDERED: HumaLOG 300 UNITS/3 ML VIAL SC PRN ×2 (15:30)
[2023-04-03] MEDS ORDERED: hydrALAZINE 20 MG/ML VIAL SLOW IVP PRN (15:30)
[2023-04-03] MEDS ORDERED: Dextrose 5% in Water 1,000 ML IV PRN (15:30)
[2023-04-03] MEDS ORDERED: Acetaminophen 325 MG TAB PO PRN (15:30)
[2023-04-03] MEDS ORDERED: Dextrose 50% Abboject 50 ML SYRINGE SLOW IVP PRN (15:30)
[2023-04-03] MEDS ORDERED: Glucagon 1 MG/ML KIT IM PRN (15:30)
[2023-04-03 16:20] LABS: Hemoglobin A1c 7.8 % (4.0-6.0)
[2023-04-03 20:22] VITALS: BMI 25.0
[2023-04-04 05:09] LABS: #Basophils 0.1 thou/uL (0.0-0.2); #Eosinphils 0.2 thou/uL (0.0-0.7); #Monocytes 0.6 thou/uL (0.11-0.59); #Neutrophils 4.7 thou/uL (1.40-6.50); %Basophils 0.6 % (0.0-1.0); %Eosinophils 2.2 % (0.0-10.0); %Lymphocytes 32.4 % (21.0-51.0); %Monocytes 6.7 % (0.0-10.0); %Neutrophils 57.9 % (42.0-75.0); Hematocrit 42.8 % (36.0-47.0); Hemoglobin 14.4 g/dL (12.0-16.0); Mean Corpuscular HGB CONC 33.6 g/dL (32.0-36.0); Mean Corpuscular Hemoglobin 30.1 pg (27.0-31.0); Mean Corpuscular Volume 89.5 fl (78.0-98.0); Mean Platelet Volume 9.5 fL (7.4-10.4); Platelet Count 365 10x3/uL (130-400); RBC Distribution Width 12.4 % (11.5-14.5); Red Blood Cell (RBC) Count 4.78 mill/uL (4.20-5.40); White Blood Cell (WBC) Count 8.2 10x3/uL (4.8-10.8)
[2023-04-04 05:31] LABS: Anion Gap 10 mmol/L (10-20); BUN (Urea Nitrogen) 15 mg/dL (7.0-18.7); Calc. Creatinine Clearance 102 mL/min (70-130); Calcium 8.8 mg/dL (7.8-10.44); Carbon Dioxide 24 mmol/L (22-29); Cardiac Risk 5.5 (Less than 4.5); Chloride 106 mmol/L (98-107); Cholesterol 148 mg/dl (< 200 Desired); Estimated GFR 99; Glucose 162 mg/dL (70-105); HDL Cholesterol 27 mg/dL (>60 Neg Risk); LDL Cholesterol, Calculated 84 mg/dL; Potassium 3.8 mmol/L (3.5-5.1); Sodium 136 mmol/L (136-145); Triglycerides 185 mg/dL (Less than 150)
[2023-04-04] MEDS ORDERED: Ezetimibe 10 MG TAB PO SCH (09:00)
[2023-04-04] MEDS ORDERED: Aspirin 81 mg Enteric Coated Tablet PO SCH (09:00)
[2023-04-04] MEDS ORDERED: Clopidogrel Bisulfate 75 MG TAB PO SCH (09:00)
[2023-04-04] MEDS ORDERED: Insulin Glargine 30 UNITS/0.3 ML VIAL SC SCH (09:00)
[2023-04-04 12:32] VITALS: BP 129/85; TEMP 98.6
[2023-04-04 14:36] LABS: D-Dimer Test Less than 0.27 *mcg/mL (0.27-0.43); HEX PHOS LA Tube 1 40.6 SEC; HEX PHOS LA Tube 2 38.4 SEC; Hexagonal Phospholipid Neut 2.2 SEC (0-8.0); Prothrombin Time 13.1 sec (12.0-14.7)
[2023-04-04 14:43] LABS: Protein C Activity 184 % (78-152)
[2023-04-05 15:16] LABS: Cardiolipin IgA Ab 3.5 APL-U/mL (<14 Negative); Cardiolipin IgM Ab Less than 0.9 MPL-U/mL (<10 Negative); EliA APS New Method **** NEW METHOD ****
[2023-04-11 16:37] LABS: Activated Protein C Resistance 3.2 ratio (.)
== END 2023-04-04 14:40 | disposition home or self-care (01) ==
LOC: ERS 11:14 → ERHOLD 13:21 → 2SE 18:37
PROVIDERS: ADMIT Family Medicine; ATTEND Family Medicine
DX: G45.9 Transient cerebral ischemic attack, unspecified (principal); E11.9 Type 2 diabetes mellitus without complications; I10 Essential (primary) hypertension; E78.5 Hyperlipidemia, unspecified; G43.909 Migraine, unspecified, not intractable, without status migrainosus; Z86.73 Personal history of transient ischemic attack (TIA), and cerebral infarction without residual deficits; Z91.040 Latex allergy status; Z88.8 Allergy status to other drugs, medicaments and biological substances; Z88.0 Allergy status to penicillin; Z90.710 Acquired absence of both cervix and uterus; Z90.722 Acquired absence of ovaries, bilateral; Z98.84 Bariatric surgery status; Z79.82 Long term (current) use of aspirin; Z79.4 Long term (current) use of insulin; Z79.02 Long term (current) use of antithrombotics/antiplatelets; Z79.899 Other long term (current) drug therapy
CPT/HCPCS: 36415; 36416; 70450; 70496; 70498; 70551; 71045; 80048; 80053; 80061; 80306; 81001; 83036; 83090; 84443; 84484; 84703; 85025; 85300; 85303; 85305; 85307; 85379; 85598; 85610; 85730; 86147; 93005; 96365; 96372; G0378; J1650; J1815; J2765; Q9967

== ENCOUNTER 2024-01-10 08:03 | Outpatient (CLI) | payer BC | END 2024-01-10 08:04 | disposition home or self-care (01) | LOC: BICMAMMO 08:03 | PROVIDERS: ATTEND Nurse Practitioner Family | DX: N64.89 Other specified disorders of breast (principal) | CPT/HCPCS: G0279 ==